=== PATIENT | female | born 1945 | race Caucasian/White ===

== ENCOUNTER → 2023-08-08 | Outpatient (CLI) | payer MEDICARE, OTHER, SELFPAY ==
--- NOTE | 2023-08-08 12:41 | RAD_ITS ---
INDICATION: D48.5 bilateral foot pain, left greater than right EXAMINATION/TECHNIQUE: X-RAY - RIGHT XR Foot Min 3 Views 3 VIEWS COMPARISON: [Left foot radiograph on same day SOFT TISSUES: No soft tissue swelling or gas. No radiopaque foreign body. BONES/JOINTS: No acute fracture or subluxation.. Normal alignment. Mild joint space narrowing at the first metatarsophalangeal joint and throughout the interphalangeal joints. No sclerotic or destructive changes observed. Moderate calcaneal Achilles enthesophyte. Osteopenia. RAD/Foot min 3 Views IMPRESSION: No evidence of acute injury. 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 Moderate calcaneal Achilles enthesophyte. Osteopenia. Electronically Signed: Kt Cuadra MD at 8:54 EDT ,
--- NOTE | 2023-08-08 12:41 | RAD_ITS ---
INDICATION: D48.5. Bilateral foot pain, left greater than right EXAMINATION/TECHNIQUE: X-RAY - LEFT XR Foot Min 3 Views 3 VIEWS COMPARISON: Right foot radiograph on same day FINDINGS: SOFT TISSUES: No soft tissue swelling or gas. No radiopaque foreign body. BONES/JOINTS: No acute fracture or subluxation.. Normal alignment. Dorsal bridging osteophyte at the first tarsal metatarsal joint. Joint spacing is mostly preserved with mild diffuse endplate degenerative joint degenerative change. No sclerotic or destructive changes observed. Moderate calcaneal Achilles enthesophyte. Osteopenia. RAD/Foot min 3 Views IMPRESSION: No evidence of acute injury. Osteopenia. 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 Moderate calcaneal Achilles enthesophyte. Electronically Signed: Kt Cuadra MD at 8:47 EDT ,
== END | disposition home or self-care (01) ==
PROVIDERS: PCP Family Medicine; Referring Provider Dermatology Pediatric Dermatology; Visit Provider Dermatology Pediatric Dermatology
DX: L91.8 Other hypertrophic disorders of the skin (principal); M32.10 Systemic lupus erythematosus, organ or system involvement unspecified; L82.1 Other seborrheic keratosis; L57.8 Other skin changes due to chronic exposure to nonionizing radiation; D18.01 Hemangioma of skin and subcutaneous tissue; Z71.89 Other specified counseling; L65.0 Telogen effluvium; D48.5 Neoplasm of uncertain behavior of skin; L30.9 Dermatitis, unspecified; L29.8 Other pruritus; L81.4 Other melanin hyperpigmentation
CPT/HCPCS: 73630